=== PATIENT | female | born 1965 | race Hispanic/Latino ===

== ENCOUNTER 2016-10-29 01:31 | Inpatient (IN) | payer MEDICAID ==
[2016-10-29 01:31] VITALS: BMI 19.5
[2016-10-29 01:40] VITALS: O2SAT 98
--- NOTE | 2016-10-29 01:41 | ED PDOC ---
Psych Transfer Clearance - Clearance Statement Clearance Statement: Reviewed vital signs, lab results and transfer papers. Patient clinically stable for psychiatric admission.
[2016-10-29] MEDS ORDERED: Magnesium Hydroxide Susp 30 ml UD PO PRN (02:53)
[2016-10-29] MEDS ORDERED: Alum-Mag Hydrox-Simethicone Susp (30 mL) PO PRN (02:53)
[2016-10-29 07:21] LABS: T4 10.3 ug/dl (5.5-11.0)
[2016-10-29 07:34] LABS: THYROID STIMULATING HORMONE 2.22 mIU/ML (0.46-4.68)
--- NOTE | 2016-10-29 12:35 | PCM.PSYCH ---
Initial Psychiatric Evaluation - Initial Psychiatric Evaluation Type of Admission: Voluntary Legal Status: Capacity Chief Complaint (in patient's own words): i just need to be back on my medication Patient's Reaction to Hospitalization: irritable History of Present Illness and Precipitating Events: pt reprorts she has bipolar disorder. has been hospitalized in apr 2016. has history of previous suicide attempts. she reports she could not get her medications prescribed and has not taken them for a week. she has trouble sleeping. she is irritable. she wants to get restarted on her medications before she further decompensates. she denies current suicidal or homicidal thoughts. she reports she only does well on her current medications. Current Medications: Active Medications Generic Name Dose Route Start Last Admin Trade Name Freq PRN Reason Stop Dose Admin Acetaminophen 650 mg 10/29/16 02:53 Tylenol 325mg Tab PO Q4 PRN Pain, moderate (4-7) Al Hydrox/Mg Hydrox/Simethicone 30 ml 10/29/16 02:53 Maalox Plus 30 Ml PO Q4 PRN Dyspepsia Chlorpromazine 100 mg 10/29/16 22:00 Thorazine PO HS OSWALDO Clonazepam 1 mg 10/29/16 09:33 10/29/16 11:12 Klonopin PO 1 mg QAM OSWALDO Administration Clonazepam 2 mg 10/29/16 22:00 Klonopin PO HS OSWALDO Lamotrigine 50 mg 10/29/16 09:50 10/29/16 11:52 Lamictal PO 50 mg BID OSWALDO Administration Lorazepam 2 mg 10/29/16 02:53 Ativan IM Q4 PRN Anxiety/Agitation,Unable PO Lorazepam 1 mg 10/29/16 02:53 Ativan PO Q4 PRN Anxiety/Agitation Magnesium Hydroxide 30 ml 10/29/16 02:53 Milk Of Magnesia PO HS PRN Constipation Nicotine 1 patch 10/29/16 09:45 10/29/16 11:27 Nicoderm Cq TD 1 patch DAILY OSWALDO Administration Past Psychiatric History - Past Psychiatric History Previous Treatment History: Inpatient Prior Professional Help: has outpt providers at [facility]: april in [facility] History of Abuse: "i don't want to talk about it" History of ETOH/Drug Use: uds positive for amphetamines, pt "doesn't want to talk about it" regarding drug use History of Family Illness: "i don't want to talk about it" Pertinent Medical Hx (Current Medical&Sleep Prob, Allergies): Allergies Allergy/AdvReac Type Severity Reaction Status Date / Time aspirin Allergy Mild RASH Verified 10/28/16 15:48 Penicillins Allergy RASH Verified 10/28/16 15:48 ibuprofen [From Motrin] AdvReac ANAPHYLAXIS Verified 10/28/16 15:48 NSAIDS (Non-Steroidal AdvReac ANAPHYLAXIS Verified 10/28/16 15:48 Anti-Inflamma quetiapine fumarate AdvReac SHORTNESS Verified 10/28/16 15:48 [From Seroquel] OF BREATH clonazePAM [Klonopin] 1 mg PO QAM #14 tab 12/20/14 clonazePAM [Klonopin] 2 mg PO HS #14 tab 12/20/14 chlorproMAZINE [Thorazine] 100 mg PO HS tab 05/02/16 lamoTRIgine [Lamictal] 100 mg PO BID tab 05/02/16 Review of Systems - Psychiatric Psychiatric: As Per HPI, Abnormal Sleep Pattern, Difficulty Concentrating, Irritability, Suicidal Ideation Mental Status Examination - Personal Presentation Personal Presentation: Looks stated age Additional comments: thin, fairly groomed - Affect Affect: Constricted - Motor Activity Motor Activity: Calm - Reliability in Providing Information Reliability in Providing Information: Poor, due to altered mood - Speech Speech: Organized - Mood Mood: Anxious, Other (irritable) - Formal Thought Process Formal Thought Process: No Impairment - Obsessions/Compulsions Obsessions: No Compulsions: No - Cognitive Functions Orientation: Person, Place, Situation, Time Sensorium: Alert Attention/Concentration: Attentive Abstract Thinking: [place] Estimate of Intelligence: Average Judgement: Intact, as evidence by: Insight regarding need for hospitalization Memory: Recent intact, as evidence by: Ability to recall events of the day, Remote intact, as evidenced by: Abilit to recall sig. life events - Risk Risk: Suicidal, Diminished functioning (denies plan or intent currently and states she said it to get admitted to get her medications) - Strength & Assets Inventory Strength & Assets Inventory: Intelligence - Limitations Limitations: Other (? providers) DSM 5 DX - DSM 5 DSM 5 Diagnosis: bipolar disorder, mixed - Recommended/Plan of Treatment Treatment Recommendations and Plan of Treatment: admit to 3 for safety and observation gather collateral information provide supportive therapy adjust medications- restart lamictal, and other meds. hospitalist consult disposition planning Projected ELOS: 3-5 days Prognosis: fair Discharge Plan and Discharge Criteria: refer to outpt providers - Smoking Cessation Smoking Cessation Initiated: Yes
[2016-10-29 15:34] LABS: RBC URINE 2 /hpf (0-3); URINE BILIRUBIN NEGATIVE (NEGATIVE); URINE BLOOD TRACE (NEGATIVE); URINE COLOR YELLOW (YELLOW); URINE GLUCOSE (UA) NEGATIVE (Normal); URINE KETONE NEGATIVE (NEGATIVE); URINE LEUKOCYTE ESTERASE TRACE Leu/uL (Negative); URINE PROTEIN TRACE mg/dL (NEGATIVE); URINE UROBILINOGEN 0.2 mg/dL (0.2-1.0); WBC URINE 5 /hpf (0-5)
[2016-10-29 15:35] LABS: URINE BACTERIA RARE (<OCC)
[2016-10-30 09:12] VITALS: BP 125/82; PULSE 93; RESP 20; TEMP 98.1
--- NOTE | 2016-10-30 10:01 | PCM.PYCHDC ---
Mental Status Examination - Mental Status Examination Orientation: Person, Place, Situation, Time Memory: Intact Mood: Neutral Affect: Broad Speech: Appropriate Attention: WNL Concentration: WNL Association: WNL Fund of Knowledge: WNL Formal Thought Process: No Impairment Description of patient's judgement and insight: fair Psychotic Thoughts and Behaviors: denies any a/v hallucinations Suicidal Ideation: No Current Homicidal Ideation?: No Plan: pt denies any suicidal or homicidal thoughts/plan or intent Discharge Summary - Discharge Note Reason for Hospitalization: pt could not get refills of her medications, resulting in irritable mood/poor sleep. Psychiatric History (includes Medical, Family, Personal Hx): history of bipolar disorder Laboratory Data: Abnormal Lab Results 10/29/16 10/29/16 10/29/16 06:39 06:39 14:40 Hemoglobin A1c 5.2 Urine Color Yellow Urine Clarity Clear Urine pH 5.0 Ur Specific [place] >= 1.030 Urine Protein Trace Urine Glucose (UA) Negative Urine Ketones Negative Urine Blood Trace Urine Nitrate Negative Urine Bilirubin Negative Urine Urobilinogen 0.2 Ur Leukocyte Esterase Trace Urine RBC (Auto) 2 Urine Microscopic WBC 5 Ur Squamous Epith Cells 4 Urine Bacteria Rare Ur Oval Fat Bodies Auto RPR Nonreactive Consultations:: List each consultation separately and include: 1. Reason for request. 2. Findings. 3. Follow-up Consultations: seen by the hospitalist Summary of Hospital Course include:: 1. Description of specific treatment plan utilized for patients during their course of treatmen. 2. Summarize the time- course for resolution of acute symptoms and/or regressed behaviors. 3. Describe issues identified and worked on during hospitalization. 4. Describe medication utilized. 5. Describe medical problems identified and treated. 6. Reassessment of suicide risk Summary of Hospital Course: pt reprorts she has bipolar disorder. has been hospitalized in apr 2016. has history of previous suicide attempts. she reports she could not get her medications prescribed and has not taken them for a week. she has trouble sleeping. she is irritable. she wants to get restarted on her medications before she further decompensates. she denies current suicidal or homicidal thoughts. she reports she only does well on her current medications. hospital course pt was admitted to [facility] and oriented to the unit. pt was placed on routine safety protocols. pt was restarted on her home medications. she did not have any side effects. she was seen by hospitalist. she reported that she was not suicidal, but only made statements about being suicidal to gain admission to the hospital so her medications could be restarted. she was calm, visible in milieu and participating in treatment. at time of discharge she was goal directed and future oriented and was denying any suicidal or homicidal thoughts. - Final Diagnosis (DSM 5) Condition upon Discharge: GOOD DSM 5: bipolar disorder, mixed Disposition: HOME/ ROUTINE Follow-up Treatment Plan: follow up with aftercare as directed take medications as prescribed do not use alcohol, tobacco or other illicit substances call 911 if any suicidal or homicidal thoughts Prescriptions/Medication Reconciliation: chlorproMAZINE [Thorazine] 100 mg PO HS #60 tab clonazePAM [Klonopin] 1 mg PO QAM #15 tab Clonazepam [Klonopin] 2 mg PO HS #15 tablet lamoTRIgine [Lamictal] 100 mg PO BID #30 tab Nicotine 21 mg/24 hr [Nicoderm Cq] 1 patch TD DAILY #30 patch traZODone [Desyrel] 50 mg PO HS PRN #25 tab PRN Reason: Insomnia - Smoking Cessation Smoking Cessation Medication prescribed: Yes - Antipsychotic Medications Pt discharged on 2 or more routine antipsychotic medications: No
== END 2016-10-30 16:24 | disposition home or self-care (01) | DRG 430 ==
LOC: H.ER 01:31 → H.PSYCH 01:40
PROVIDERS: ADMIT Psychiatry & Neurology Psychiatry; ATTEND Psychiatry & Neurology Psychiatry
PROC: GZHZZZZ Group Psychotherapy (ICD-10-PCS; principal; 2016-10-29)
PROC: GZ56ZZZ Individual Psychotherapy, Supportive (ICD-10-PCS; 2016-10-29)
DX: F31.60 Bipolar disorder, current episode mixed, unspecified (principal); Z88.0 Allergy status to penicillin; Z88.6 Allergy status to analgesic agent